=== PATIENT | male | born 1990 | race Two or more races ===

== ENCOUNTER 2018-06-29 07:16 | Emergency (ER) | payer MEDICAID, OTHER ==
[2018-06-29] MEDS ORDERED: Acetaminophen 325 MG Tab PO ONE (07:39)
[2018-06-29] MEDS ORDERED: traMADol 50 MG Tab PO ONE (07:39)
--- NOTE | 2018-06-29 07:48 | EDM.PDOC ---
ED HPI GENERAL MEDICAL PROBLEM - General Chief Complaint: Upper Extremity Injury/Pain Stated Complaint: RT SHOULDER PAIN Time Seen by Provider: 06/29/18 07:25 Source of Information: Reports: Patient, RN Notes Reviewed - History of Present Illness INITIAL COMMENTS - FREE TEXT/NARRATIVE: 27-year-old male comes in with right back pain. His first started a couple of weeks ago but has been much worse the last few days. He is having pain just inferior and medial to the right scapula. The pain is worse with motion of the arm or shoulder. He does do a fair amount of lifting with his work. There's been no fall. No chest pain or difficulty breathing Right Shoulder Pain Score (Numeric/FACES): 8 - Related Data Allergies Allergy/AdvReac Type Severity Reaction Status Date / Time No Known Allergies Allergy Verified 06/29/18 07:25 Home Meds: Home Meds Naproxen [Naprosyn] 500 mg PO Q12HR #14 tab 06/29/18 [Rx] traMADol [Ultram] 50 mg PO Q6H PRN #20 tab 06/29/18 [Rx] Past Medical History - Past Health History Medical/Surgical History: Denies Medical/Surgical History Social & Family History - Tobacco Use Smoking Status *Q: Current Every Day Smoker Years of Tobacco use: 8 Packs/Tins Daily: 0.5 - Caffeine Use Caffeine Use: Reports: Soda - Recreational Drug Use Recreational Drug Use: No Review of Systems - Review of Systems Review Of Systems: See Below Respiratory: Reports: No Symptoms Cardiovascular: Reports: No Symptoms GI/Abdominal: Reports: No Symptoms Musculoskeletal: Reports: Back Pain (Right back discomfort) Skin: Reports: No Symptoms Neurological: Denies: Numbness, Tingling, Weakness ED EXAM, GENERAL - Physical Exam Exam: See Below General Appearance: Alert, No Apparent Distress Head: Atraumatic Neck: Supple Respiratory/Chest: No Respiratory Distress Cardiovascular: Regular Rate, Rhythm Back Exam: Other (There is tenderness just inferior to the right scapula and also medial to the inferior aspect of the right scapula, no swelling or spasm present) Extremities: Other (Right back discomfort is worse with motion of the right arm and shoulder). No: Joint Swelling (The right shoulder has no swelling or visible deformity, totally nontender not warm or erythematous) Neurological: No Motor/Sensory Deficits Skin Exam: Warm, Dry, Normal Color Course - Vital Signs Last Recorded V/S: Last Vital Signs Temp 98.2 F 06/29/18 07:22 Pulse 92 06/29/18 07:22 Resp 18 06/29/18 07:22 BP 155/92 H 06/29/18 07:22 Pulse Ox 96 06/29/18 07:22 - Orders/Labs/Meds Meds: Medications Discontinued Medications Generic Name Dose Route Start Last Admin Trade Name Amolq PRN Reason Stop Dose Admin Acetaminophen 975 mg 06/29/18 07:39 06/29/18 07:44 Tylenol PO 06/29/18 07:40 975 mg NOW ONE Administration Tramadol HCl 50 mg 06/29/18 07:39 06/29/18 07:44 Ultram PO 06/29/18 07:40 50 mg ONETIME ONE Administration Departure - Departure Time of Disposition: 07:48 Disposition: Home, Self-Care 01 Condition: Fair Clinical Impression: Back strain Qualifiers: Encounter type: initial encounter Qualified Code(s): S39.012A - Strain of muscle, fascia and tendon of lower back, initial encounter - Discharge Information Prescriptions: Naproxen [Naprosyn] 500 mg PO Q12HR #14 tab traMADol [Ultram] 50 mg PO Q6H PRN #20 tab PRN Reason: Pain Instructions: Mid-Back Strain Re[facility] for Routine Care of Injuries Referrals: PCP,Holger [Primary Care Provider] - Forms: ED Department Discharge, ED Return to Work/School Form Additional Instructions: alternate ice and heat to area of discomfort R back, Naprosyn 500 mg twice daily for pain and inflamation, you may take tylenol in addition up to 3 times daily for extra pain relief, tramadol 50 mg q 6 to 8 hr in addition if needed for severe pain not relieved by naprosyn and tylenol. Try avoid heavy lifting at work as best you can until pain resolving. Follow up clinic in about 5 to 7 days if not much better.
== END 2018-06-29 08:08 | disposition home or self-care (01) ==
LOC: JD.ED 07:16
DX: S39.012A Strain of muscle, fascia and tendon of lower back, initial encounter (principal); F17.210 Nicotine dependence, cigarettes, uncomplicated; X58.XXXA Exposure to other specified factors, initial encounter
CPT/HCPCS: 99283; A9270

== ENCOUNTER 2019-04-28 16:24 | Emergency (ER) | payer MEDICAID ==
[2019-04-28] MEDS ORDERED: Acetaminophen/oxyCODONE 325-5 MG Tab PO ONE ×2 (16:51→18:42)
--- NOTE | 2019-04-28 16:55 | EDM.PDOC ---
ED HPI GENERAL MEDICAL PROBLEM - General Chief Complaint: Flank Pain Stated Complaint: SOB,BACK PAIN Time Seen by Provider: 04/28/19 16:33 Source of Information: Reports: Patient, RN Notes Reviewed History Limitations: Reports: No Limitations - History of Present Illness INITIAL COMMENTS - FREE TEXT/NARRATIVE: Patient is a 28-year-old female who presents to the ED for the evaluation of left flank pain. Patient states that this started suddenly around noon, does not radiate anywhere, this pain is in his left upper back/flank area. Pain has been steady and sharp, and it is becoming more intense. He states that he did not take any medications at home to try to improve this, he states that he took a nap trying to sleep this off. He has been having to take smaller shallower breaths, as he states breathing hurts or aggravates the pain quite a bit. He said roughly about 1 hour ago he developed some minor chills as well. He has not felt pain like this before ever in his life. He scan no history of kidney stones, or other past medical history that he is aware of. He does not have any previous abdominal surgeries. He denies any dysuria, urinary urgency or urinary frequency. He notes his last bowel movement was either last night or this morning. He would rate his pain at an 8 out of 10 today. Left Flank Pain Score (Numeric/FACES): 8 - Related Data Allergies Allergy/AdvReac Type Severity Reaction Status Date / Time No Known Allergies Allergy Verified 06/29/18 07:25 Home Meds: Home Meds Acetaminophen/oxyCODONE [Percocet 325-10 MG] 1 tab PO Q6H #12 tab 04/28/19 [Rx] levoFLOXacin [Levaquin] 500 mg PO DAILY #9 tab 04/28/19 [Rx] Past Medical History - Past Health History Medical/Surgical History: Denies Medical/Surgical History Social & Family History - Tobacco Use Smoking Status *Q: Current Every Day Smoker Years of Tobacco use: 6 Packs/Tins Daily: 0.3 - Caffeine Use Caffeine Use: Reports: Coffee, Soda, Tea - Recreational Drug Use Recreational Drug Use: No ED ROS GENERAL - Review of Systems Review Of Systems: See Below Constitutional: Reports: Chills. Denies: Fever HEENT: Reports: No Symptoms Respiratory: Reports: Shortness of Breath (having to take small, more frequent breaths d/t pain) Cardiovascular: Reports: Chest Pain. Denies: Lightheadedness GI/Abdominal: Reports: Constipation. Denies: Abdominal Pain, Diarrhea, Nausea, Vomiting : Reports: Flank Pain (Left). Denies: Dysuria, Frequency, Hematuria, Urgency Musculoskeletal: Reports: Back Pain (Left upper back/flank under rib cage) Skin: Reports: No Symptoms Neurological: Reports: No Symptoms Psychiatric: Reports: No Symptoms Hematologic/Lymphatic: Reports: No Symptoms ED EXAM, RENAL/ - Physical Exam Exam: See Below Exam Limited By: No Limitations General Appearance: Alert, WD/WN, No Apparent Distress (Patient appears to be an obvious amount of pain, he is taking splinting breaths, as he states the pain is quite intense.) Eye Exam: Bilateral Eye: EOMI, Normal Inspection, PERRL Respiratory/Chest: No Respiratory Distress, Lungs Clear, Normal Breath Sounds, No Accessory Muscle Use, Chest Non-Tender, Splinting (d/t LUQ/flank/back pain) Cardiovascular: Normal Peripheral Pulses, Regular Rate, Rhythm, No Edema, No Murmur GI/Abdominal: Normal Bowel Sounds, Soft, Non-Tender, No Distention, No Mass Back Exam: No: CVA Tenderness (L), CVA Tenderness (R) Extremities: Normal Inspection, Normal Capillary Refill Neurological: Alert, Oriented, Normal Cognition, No Motor/Sensory Deficits Psychiatric: Normal Affect, Normal Mood Skin Exam: Warm, Dry, Intact, Normal Color, No Rash Course - Vital Signs Last Recorded V/S: Last Vital Signs Temp 101.5 F H 04/28/19 16:35 Pulse 114 H 04/28/19 16:35 Resp 20 04/28/19 16:35 BP 145/85 H 04/28/19 16:35 Pulse Ox 96 04/28/19 16:35 - Orders/Labs/Meds Orders: Active Orders 24 hr Category Date Time Status Chest 2V [CR] Stat Exams 04/28/19 16:50 Taken CULTURE BLOOD [BC] Stat Lab 04/28/19 17:15 Received CULTURE BLOOD [BC] Stat Lab 04/28/19 17:20 Received Blood Culture x2 Reflex Set [OM.PC] Stat Oth 04/28/19 16:59 Ordered Labs: Laboratory Tests 04/28/19 04/28/19 04/28/19 Range/Units 16:59 16:59 17:30 WBC 15.41 H (4.23-9.07) K/mm3 RBC 5.28 (4.63-6.08) M/mm3 Hgb 15.3 (13.7-17.5) gm/dl Hct 47.5 (40.1-51.0) % MCV 90.0 (79.0-92.2) fl MCH 29.0 (25.7-32.2) pg MCHC 32.2 (32.2-35.5) g/dl RDW Std Deviation 42.2 (35.1-43.9) fL Plt Count 333 (163-337) K/mm3 MPV 9.3 L (9.4-12.3) fl Neutrophils % (Manual) 80 H (40-60) % Band Neutrophils % 0 (0-10) % Lymphocytes % (Manual) 9 L (20-40) % Atypical Lymphs % 0 % Monocytes % (Manual) 9 (2-10) % Eosinophils % (Manual) 2 (0.8-7.0) % Basophils % (Manual) 0 L (0.2-1.2) Platelet Estimate Adequate RBC Morph Comment Normal Sodium 139 (136-145) mEq/L Potassium 3.8 (3.5-5.1) mEq/L Chloride 103 (98-107) mEq/L Carbon Dioxide 28 (21-32) mEq/L Anion Gap 11.8 (5-15) BUN 14 (7-18) mg/dL Creatinine 1.1 (0.7-1.3) mg/dL Est Cr Clr Drug Dosing 114.17 mL/min Estimated GFR (MDRD) > 60 (>60) mL/min BUN/Creatinine Ratio 12.7 L (14-18) Glucose 96 (74-106) mg/dL Calcium 9.1 (8.5-10.1) mg/dL Total Bilirubin 0.4 (0.2-1.0) mg/dL AST 20 (15-37) U/L ALT 35 (16-63) U/L Alkaline Phosphatase 80 (46-116) U/L Total Protein 8.0 (6.4-8.2) g/dl Albumin 3.9 (3.4-5.0) g/dl Globulin 4.1 gm/dL Albumin/Globulin Ratio 1.0 (1-2) Urine Color Light yellow (Yellow) Urine Appearance Clear (Clear) Urine pH 6.5 (5.0-8.0) Ur Specific Lamar 1.025 (1.005-1.030) Urine Protein Negative (Negative) Urine Glucose (UA) Negative (Negative) Urine Ketones Negative (Negative) Urine Occult Blood 1+ H (Negative) Urine Nitrite Negative (Negative) Urine Bilirubin Negative (Negative) Urine Urobilinogen 0.2 (0.2-1.0) Ur Leukocyte Esterase Negative (Negative) Urine RBC 0-5 (0-5) /hpf Urine WBC Not seen (0-5) /hpf Ur Squamous Epith Cells 0-5 (0-5) /hpf Urine Bacteria Not seen (FEW) /hpf Urine Mucus Not seen (FEW) /hpf Meds: Medications Discontinued Medications Generic Name Dose Route Start Last Admin Trade Name Freq PRN Reason Stop Dose Admin Levofloxacin 500 mg 04/28/19 18:42 04/28/19 18:55 Levaquin PO 04/28/19 18:43 500 mg ONETIME ONE Administration Oxycodone/Acetaminophen 1 tab 04/28/19 16:51 04/28/19 16:59 Percocet 325-5 Mg PO 04/28/19 16:52 1 tab ONETIME ONE Administration Oxycodone/Acetaminophen 2 tab 04/28/19 18:42 04/28/19 18:55 Percocet 325-5 Mg PO 04/28/19 18:43 2 tab ONETIME ONE Administration - Re-Assessments/Exams Free Text/Narrative Re-Assessment/Exam: 04/28/19 16:58 Patient presents to the ED for quite intense left upper quadrant/flank/back pain. Due to the sudden course of this, I did order a chest x-ray for evaluation of possible pneumonia, urinalysis, and abdominal pelvis CT for a kidney infection, and a CBC, CMP for further evaluation. 04/28/19 18:45 Labs did come back, and demonstrated increased white count of 15,000, with neutrophils 80% no bands. Metabolic panel within normal limits, UA is essentially within normal limits. Abdomen and pelvis CT demonstrates a focal consolidation is partially visualized within the medial and left posterior lung base. This may represent area of pneumonia as well as focal area of atelectasis patient has no infectious symptoms. Due to the patient's fever, increased white count, I am suspicious that this is is more of a pneumonia in nature, and it pushing on his pleura in this area causing his pain. Patient will be started on Levaquin 500 mg daily for 10 days, and Percocet 10/325 every 6 hours as needed for further pain relief. Departure - Departure Time of Disposition: 18:47 Disposition: Home, Self-Care 01 Condition: Fair Clinical Impression: Pneumonia Qualifiers: Pneumonia type: due to unspecified organism Laterality: left Lung location: lower lobe of lung Qualified Code(s): J18.1 - Lobar pneumonia, unspecified organism - Discharge Information *PRESCRIPTION DRUG MONITORING PROGRAM REVIEWED*: No *COPY OF PRESCRIPTION DRUG MONITORING REPORT IN PATIENT JOSE ANTONIO: No Prescriptions: Acetaminophen/oxyCODONE [Percocet 325-10 MG] 1 tab PO Q6H #12 tab levoFLOXacin [Levaquin] 500 mg PO DAILY #9 tab Instructions: Community-Acquired Pneumonia, Adult, [id number] Referrals: PCP,None [Primary Care Provider] - Forms: ED Department Discharge, ED Return to Work/School Form Additional Instructions: You were evaluated in the ER today regarding your left sided mid/upper back pain. Your laboratory evaluation demonstrated an increased white blood cell count, and your CT suggests that he might have a pneumonia in the bottom of your left lung. This could explain most of her symptoms, you have been started on Levaquin 500 mg daily for 10 days. 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 You were also given a prescription for Percocet, 10/325, please take one tablet every 6 hours as needed for further pain relief. You may take extra Tylenol for further fever relief, however do not exceed 4000 mg in a 24 hour time period. Please return to the ED if your symptoms should change or worsen. - My Orders Last 24 Hours: My Active Orders 04/28/19 16:50 Chest 2V [CR] Stat 04/28/19 16:59 Blood Culture x2 Reflex Set [OM.PC] Stat 04/28/19 17:15 CULTURE BLOOD [BC] Stat 04/28/19 17:20 CULTURE BLOOD [BC] Stat - Assessment/Plan Last 24 Hours: My Active Orders 04/28/19 16:50 Chest 2V [CR] Stat 04/28/19 16:59 Blood Culture x2 Reflex Set [OM.PC] Stat 04/28/19 17:15 CULTURE BLOOD [BC] Stat 04/28/19 17:20 CULTURE BLOOD [BC] Stat
--- NOTE | 2019-04-28 18:26 | CT ---
CT abdomen and pelvis Technique: Multiple axial sections were obtained from above the kidneys inferiorly through the pubic symphysis. Intravenous and oral contrast was not utilized. Study has been performed as a ureteral stone protocol. Findings: Ureters show no dilatation. No abnormal calcifications are seen along the course of the ureters. No inflammatory change is seen around the kidneys. No renal calculi are seen. Focal parenchymal density is partially visualized within the medial and posterior left lung base. Uncertain if this is due to pneumonia or focal area of atelectasis. Noncontrast appearance of the visualized liver and spleen appears within normal limits. Adrenal glands show no nodule. Pancreas is within normal limits. Gallbladder is collapsed but shows no calcified gallstones. Aorta shows no aneurysm. No retroperitoneal adenopathy or mesenteric abnormalities are seen. Appendix is seen which is normal. No pelvic mass or adenopathy is seen. No free fluid or inflammatory change is seen. Bone window settings were reviewed which appear within normal limits for the patient's age. Impression: 1. Focal consolidation is partially visualized within the medial and posterior left lung base. This may represent an area of pneumonia as well as focal area of atelectasis if patient has no infectious symptoms. 2. No renal calculi, ureteral dilatation or ureteral stone is seen. 3. No additional abnormality is appreciated on noncontrast CT study of the abdomen and pelvis performed as a ureteral stone protocol. Diagnostic code #3
[2019-04-28] MEDS ORDERED: Levofloxacin 500 MG Tab PO ONE (18:42)
--- NOTE | 2019-04-29 06:54 | CR ---
Chest: Two views of the chest were obtained. Comparison: No prior chest x-ray. Prior CT abdomen and pelvis study performed earlier on the same day (5:31 PM). [address] study showed a focal parenchymal density within the medial left lung base. This is not well seen on this chest x-ray exam. Lungs otherwise are clear. Heart size and mediastinum are normal. Bony structures are unremarkable. Impression: 1. Nothing acute is seen on two-view chest x-ray. This study does not visualize the focal parenchymal density seen on recent CT exam within the left base. Diagnostic code #2
== END 2019-04-28 19:00 | disposition home or self-care (01) ==
LOC: JD.ED 16:24
DX: J18.1 Lobar pneumonia, unspecified organism (principal); F17.210 Nicotine dependence, cigarettes, uncomplicated
CPT/HCPCS: 36415; 71046; 74176; 80053; 81001; 85007; 85027; 87040; 99284; A9270; 99283